=== PATIENT | female | born 2000 | race Two or more races ===

== ENCOUNTER 2023-08-27 11:17 | Emergency (ER) | payer MEDICAID ==
[~2023-08-27] VITALS: Ht 162.6 cm; Wt 56.7 kg
[2023-08-27 11:53] LABS: BASOPHILS % (AUTO) 0.8 % (0.0-2.0); EOSINOPHILS # (AUTO) 0.1 K/uL (0.0-0.7); EOSINOPHILS % (AUTO) 3.9 % (0.0-7.0); LYMPHOCYTES # (AUTO) 1.4 K/uL (0.8-4.8); LYMPHOCYTES % (AUTO) 46.6 % (20.5-74.5); MEAN CORPUSCULAR HEMOGLOBIN 29.8 uug (24.7-32.8); MEAN CORPUSCULAR HGB CONC 33 g/dL (32.3-35.6); MEAN CORPUSCULAR VOLUME 91.5 fL (75.5-95.3); MONOCYTES # (AUTO) 0.2 K/uL (0.1-1.30); MONOCYTES % (AUTO) 6.3 % (0-11); NEUTROPHILS # (AUTO) 1.3 K/uL (1.8-8.9); NEUTROPHILS % (AUTO) 42.4 % (31.5-64.5); PLATELET COUNT (AUTO) 209 K/uL (179-408); RED BLOOD CELL COUNT(AUTO) 4.37 MIL/uL (3.63-4.92); RED CELL DISTRIBUTION WIDTH 13.4 % (12.3-17.7); WHITE BLOOD COUNT (AUTO) 3.1 K/uL (3.8-11.8)
[2023-08-27 12:06] LABS: DIFFERENTIAL COMMENT 1
[2023-08-27 12:09] LABS: CALCIUM 9.2 mg/dL (8.5-10.1); CREATININE 0.6 mg/dL (0.6-1.3); POTASSIUM 3.9 mmol/L (3.5-5.1)
[2023-08-27 12:22] LABS: THYROID STIMULATING HORMONE 1.304 mIU/mL (0.358-3.740)
[2023-08-27 13:11] VITALS: BP 129/71; TEMP 98; O2SAT 99
== END 2023-08-27 14:22 | disposition home or self-care (01) ==
LOC: ER 11:17
DX: M94.0 Chondrocostal junction syndrome [Tietze] (principal)
CPT/HCPCS: 36415; 84443; 85025; A4606; A4663